=== PATIENT | male | born 1950 | race Two or more races ===

== ENCOUNTER 2017-04-09 22:43 | Emergency (ER) | payer MEDICAID ==
[~2017-04-09] VITALS: Ht 177.8 cm; Wt 95.3 kg
[2017-04-09 23:31] VITALS: BP 110/78
[2017-04-10] MEDS ORDERED: ACETAMINOPHEN ES 500 MG TABLET ONE (01:55)
[2017-04-10] MEDS: ACETAMINOPHEN 325 MG TABLET PO ONE (01:58)
[2017-04-10] MEDS ORDERED: IBUPROFEN 400 MG TABLET ONE (02:52)
[2017-04-10] MEDS: IBUPROFEN 400 MG TABLET PO ONE (02:54)
== END 2017-04-10 02:56 | disposition home or self-care (01) ==
LOC: ER 22:49
DX: S82.841A Displaced bimalleolar fracture of right lower leg, initial encounter for closed fracture (principal); W18.39XA Other fall on same level, initial encounter; Y93.89 Activity, other specified; Y92.89 Other specified places as the place of occurrence of the external cause; Y99.8 Other external cause status
CPT/HCPCS: 29515; 73560; 73610; 99284; A4606; Z7610

== ENCOUNTER 2021-09-08 13:50 | Emergency (ER) | payer MEDICAID ==
[~2021-09-08] VITALS: Ht 185.4 cm; Wt 79.8 kg
[2021-09-08 14:20] VITALS: BP 143/83
--- NOTE | 2021-09-08 14:20 | NUR ---
BIBFAMILY C/O RIGHT HAND LACERATION S/P MOVING FRIDGE/FRIDGE FALL ON HIM.
[2021-09-08] MEDS ORDERED: TDAP [DIPH/PERTUSSIS/TET] 0.5 ML VIAL IM ONE (14:30)
[2021-09-08] MEDS: TDAP [DIPH/PERTUSSIS/TET] 0.5 ML VIAL IM ONE (14:44)
[2021-09-08] MEDS ORDERED: LIDOCAINE HCL/PF 1% 30 ML SDV ONE (14:52)
--- NOTE | 2021-09-08 14:57 | NUR ---
DR MATHEWS PERFORMING LACERATION CARE
--- NOTE | 2021-09-08 15:36 | NUR ---
Patient discharged to home in stable condition. Written and verbal after care instructions given. Patient verbalizes understanding of instruction.
== END 2021-09-08 15:38 | disposition home or self-care (01) ==
LOC: ER 14:00
DX: S61.411A Laceration without foreign body of right hand, initial encounter (principal); W22.8XXA Striking against or struck by other objects, initial encounter; Y93.89 Activity, other specified; Y92.89 Other specified places as the place of occurrence of the external cause; Y99.8 Other external cause status
CPT/HCPCS: 12002; 73130; 90471; 90715; 99283; J3490